=== PATIENT | male | born 1965 | race Caucasian/White ===

== ENCOUNTER 2020-10-06 18:13 | Emergency (ER) | payer SELFPAY ==
[2020-10-06 18:36] VITALS: BP 185/100; PULSE 117; RESP 15; TEMP 36.3; O2SAT 98; BMI 23.7
[2020-10-06] MEDS: cloNIDine 0.1 mg Tablet PO (19:34)
[2020-10-06 19:35] VITALS: BP 157/101; PULSE 103; RESP 17; O2SAT 97
[2020-10-06] MEDS: gelatin 12-7 mm Sponge 1 EACH TOPICAL (19:35)
[2020-10-06] MEDS: silver nitrate applicator 1 EACH TOPICAL (19:35)
[2020-10-06 20:25] VITALS: BP 157/93; PULSE 88; RESP 18; O2SAT 96
--- NOTE | 2020-10-06 21:31 | ED_ITS ---
HPI - Epistaxis General: Chief complaint: Epistaxis Stated complaint: NOSE BLEED - ALL DAY Time Seen by Provider: 10/06/20 18:48 History of Present Illness: HPI Narrative: 55-year-old male with a right-sided nosebleed since this morning. He states that it stopped and started several times throughout the day. He is not anticoagulated on blood thinners. He does not take aspirin. He is not had a nosebleed in 20 years he says. He does not take any medications. On presentation, his blood pressure is high. MD complaint: epistaxis Location: right nostril Onset (ago): hour(s) Duration: intermittent Associated symptoms: Deny fever(s), headache(s), sinus pain or vomiting Treatment prior to arrival: nose pinching and other (Afrin) Review of Systems Const: Denies: fever(s) ENMT: Denies: sinus pain GI: Denies: vomiting Neuro: Denies: headache(s) PFS ED PFSH: Social History (Updated 09/17/20 @ 12:35 by Bertha Yo LPN) Smoking and tobacco status: current every day smoker Physical Exam Const: COMMON NORMALS: no acute distress, patient oriented x3 and alert GENERAL APPEARANCE: cooperative and comfortable HENMT: COMMON NORMALS: normocephalic and Normal external nose present HEAD & SCALP: normal to inspection and normocephalic FACE & SINUS: normal facial exam NOSE: Normal external nose present and Epistaxis present on the right (Mucosal ulceration floor of right nare.) anterior source and dried blood present Chest: COMMONS NORMALS: normal inspection of the chest Resp: COMMON NORMALS: normal respiratory effort, No use of accessory muscles and clear to auscultation bilaterally AUSCULTATION: clear to auscultation bilaterally Cardio: COMMON NORMALS: regular rate and regular rhythm RATE: regular rate RHYTHM: regular rhythm GI: COMMON NORMALS: Normal to inspection, nondistended, normoactive bowel sounds present Neuro: COMMON NORMALS: patient oriented x3 SENSORIUM/ORIENTATION: Yes alert Procedures Epistaxis Control Time Out Performed: No Nostril: right Direct Inspection: yes and anterior source identified Cautery Used: silver nitrate Device Inserted: vaseline gauze (Gelfoam) Patient Tolerated Procedure: well and no complications Course Vital Signs: Vital signs: Vital Signs Temperature 97.3 F L 10/06/20 18:36 Pulse Rate 88 10/06/20 20:25 Respiratory Rate 18 10/06/20 20:25 Blood Pressure 157/93 10/06/20 20:25 Pulse Oximetry 96 10/06/20 20:25 MDM - Epistaxis MDM Narrative: Medical decision making narrative: Bleeding stopped, will allow discharge. Patient was given 0.1 mg of clonidine with reduction in his blood pressure. He was told to monitor at home. Discharge Plan Discharge Patient Disposition: Home Clinical Impression: Epistaxis Condition: Stable Prescriptions: No Action No Known Home Medications RF: 0 Discharge Orders: Discharge ED (Routine); Ordered 10/06/20 Ordered By: Daquan Rock Discharge Diet: Usual diet Discharge Activity: Increase activity as tolerated Patient Instructions: Epistaxis (ED) Activity Restrictions/Additional Instructions: Return for inability to control bleeding, swelling, pain, any other concerning symptoms. Take your blood pressure twice daily, and report those numbers to your doctor in case your high blood pressure needs to be treated. 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
== END 2020-10-06 20:25 | disposition home or self-care (01) ==
PROVIDERS: Emergency Provider Emergency Medicine
DX: R04.0 Epistaxis (principal); F17.210 Nicotine dependence, cigarettes, uncomplicated
CPT/HCPCS: 30901; 99283

== ENCOUNTER 2024-08-07 19:34 | Inpatient (IN) | payer SELFPAY ==
[2024-08-07] VITALS (7 sets, daily range): BP systolic 168–212; BP diastolic 90–114; PULSE 83–103; RESP 18–25; TEMP 36.9–37.2; O2SAT 95–98
--- NOTE | 2024-08-07 19:34 | ECG_ITS ---
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1965 Requested By: Daquan Mckinney Order Number: [id number] Reading MD: KOLBY WILLETT Measurements Intervals Icard Rate: 100 P: 55 MS: 215 QRS: 25 QRSD: 109 T: 102 QT: 332 QTc: 430 Interpretive Statements SINUS TACHYCARDIA WITH FIRST DEGREE AV BLOCK LEFT ATRIAL ENLARGEMENT [-0.15mV P-WAVE IN V1/V2] POSSIBLE ANTERIOR MYOCARDIAL INFARCTION , OF INDETERMINATE AGE [30 ms Q WAVE IN V3/V4, OR R < 0.2 mV IN V4] MODERATE T-WAVE ABNORMALITY, CONSIDER LATERAL ISCHEMIA [-0.1+ mV T-WAVE IN I/aVL/V5/V6] No previous ECG available for comparison Electronically Signed On 08-08-2024 20:59:02 CDT by KOLBY WILLETT [email or web address] [id number]
--- NOTE | 2024-08-07 19:49 | XRR_ITS ---
PROCEDURE INFORMATION: Exam: XR Chest Exam date and time: 08/07/2024 8:02 PM Age: 58 years old Clinical indication: Chest pressure; C/O left sided chest pain and SOB for the past 3 weeks. PT states that it has been intermittent. Describes the pain as sharp and will radiate down the left arm. PT also reports fatigue, productive cough. PT denies cardiac HX but reports he is a smoker of 1-1.5 pks daily. TECHNIQUE: Imaging protocol: Radiologic exam of the chest. Views: 1 view. COMPARISON: No relevant prior studies available. FINDINGS: Lungs: Hyperinflated lungs. No consolidation. Left lower lobe calcified granuloma small. Pleural spaces: No pleural effusion. No pneumothorax. Heart/Mediastinum: Cardiomegaly. Bones/joints: No acute findings. XR/XR chest 1V portable [id number] IMPRESSION: 1. Morphology of the chest compatible with emphysema/COPD. No consolidation. 2. Cardiomegaly.
[2024-08-07 20:05] LABS: Basophils # 0.1 10^3/uL (0.0-0.1); Basophils % 0.7 %; Eosinophils # 0.5 10^3/uL (0.0-0.8); Eosinophils % 4.6 %; Hematocrit 44.9 % (37-53); Lymphocytes # 4.3 10^3/uL (0.8-4.8); Lymphocytes % 43.4 %; Mean Corpuscular HGB Conc 32.7 g/dL (30-55); Mean Corpuscular Hemoglobin 30.4 pg (27-33); Mean Corpuscular Volume 92.8 fl (82-101); Mean Platelet Volume 9.2 fL (7.4-10.4); Monocytes # 0.7 10^3/uL (0.2-0.9); Monocytes % 6.9 %; Neutrophils # 4.43 10^3/uL (1.8-7.7); Neutrophils % 44.2 %; Nucleated Red Blood Cells % 0 %; Platelet Count 290 10^3/cmm (157-399); Red Blood Count 4.84 10^6/uL (3.85-5.65); Red Cell Distribution Width 13.1 % (12.1-15.1); White Blood Count 10.01 10^3/uL (3.29-11.43)
--- NOTE | 2024-08-07 20:12 | ED_ITS ---
HPI - Chest Pain 2 General: Chief Complaint: Chest Pain Stated Complaint: SOB\Chest Pains Time Seen by Provider: 08/07/24 19:48 History of Present Illness: Patient is a generally well-appearing 58-year-old male seen for chest pain, shortness of breath, lightheadedness, which have been ongoing for the last several weeks intermittently. At the time my exam he has no symptoms. He states that with exertion they get worse. He describes the pain as sharp, substernal, with radiation to the left arm. He also has had increased dyspnea on exertion. For a long time he has had dependent edema of the left lower leg and it seems to be getting worse over the last few weeks as well. He has smoked since he was 13 years old but has never had to use an inhaler for steroids and currently takes no medications. He has never been evaluated by a ms sql developer and does not have a primary care doctor. Related Data Home Medications ?Medication ?Instructions ?Recorded ?Confirmed No Known Home Medications 09/17/20 Allergies Allergy/AdvReac Type Severity Reaction Status Date / Time No Known Allergies Allergy Verified 08/07/24 19:44 [facility] ED 2 [facility]: Social History (Updated 09/17/20 @ 12:35 by Bertha Yo LPN) Smoking and tobacco/nicotine status: current every day tobacco/nicotine user Physical Exam 2 Const: COMMON NORMALS: no acute distress, patient oriented x3 and alert HENMT: COMMON NORMALS: normocephalic and atraumatic HEAD & SCALP: n ormocephalic and atraumatic Eye: COMMON NORMALS: Equal, round and reactive pupils present, EOMs intact bilaterally and no scleral icterus PUPIL: Yes Equal, round and reactive pupils present Resp: COMMON NORMALS: normal respiratory effort and No retractions Cardio: COMMON NORMALS: regular rate, regular rhythm and No murmurs present (Cardio) RATE: regular rate RHYTHM: regular rhythm GI: COMMON NORMALS: Normal to inspection, nondistended, normoactive bowel sounds present, Soft to palpation and non-tender PALPATION: Yes Soft to palpation Extremity: NARRATIVE EXTREMITY EXAM: 1+ pitting edema of the bilateral lower extremities to the knees. Left leg is somewhat larger diameter than right. No redness or pain. Neuro: COMMON NORMALS: patient oriented x3 SENSORIUM/ORIENTATION: Yes alert Skin: COMMON NORMALS: no rashes or lesions noted GENERAL SKIN EXAM: no rashes or lesions noted Course 2 Vital Signs: Vital signs: Vital Signs Temperature 98.9 F 08/07/24 19:35 Pulse Rate 96 08/07/24 20:54 Respiratory Rate 21 H 08/07/24 20:54 Blood Pressure 188/114 08/07/24 20:57 Pulse Oximetry 97 08/07/24 20:54 Oxygen Delivery Me thod Room Air 08/07/24 20:54 MDM - Chest Pain Medical Decision Making In summary, patient is a generally well-appearing 58-year-old male seen for intermittent chest pain which is exertional and accompanied by lightheadedness and diaphoresis and nausea. He was has shortness of breath due to smoking which she has done since he was 13. He has never required steroids or bronchodilators for his lungs. EKG shows left bundle branch block of uncertain chronicity. Troponin is elevated greater than 400 and BNP is somewhat elevated at 1623. He will be started on a heparin bolus and drip. He already took a baby aspirin and will be given 162 mg chewable aspirin in addition. He will be made n.p.o. at midnight. I spoke with the hospitalist will admit the patient and also with the metal furniture panel coverer who plans to cath him in the morning. He has remained pain-free throughout ED course. Patient is agreeable to the plan and will be taken to the floor in stable condition. Lab Data 08/07/24 19:53 08/07/24 19:53 Radiology Impressions Chest X-Ray 08/07/24 19:49 IMPRESSION: 1. Morphology of the chest compatible with emphysema/COPD. No consolidation. 2. Cardiomegaly. Laboratory Results WBC 10.01 10^3/uL (3.29-11.43) 08/07/24 19:53 RBC 4.84 10^6/uL (3.85-5.65) 08/07/24 19:53 Hgb 14.70 g/dL (11.27-16.99) 08/07/24 19:53 Hct 44.9 % (37-53) 08/07/24 19:53 MCV 92.8 fl (82-101) 08/07/24 19:53 MCH 30.4 pg (27-33) 08/07/24 19:53 MCHC 32.7 g/dL (30-55) 08/07/24 19:53 RDW 13.1 % (12.1-15.1) 08/07/24 19:53 Plt Count 290 10^3/cmm (157-399) 08/07/24 19:53 MPV 9.2 fL (7.4-10.4) 08/07/24 19:53 Neut % (Auto) 44.2 % 08/07/24 19:53 Lymph % (Auto) 43.4 % 08/07/24 19:53 [place] % (Auto) 6.9 % 08/07/24 19:53 Eos % (Auto) 4.6 % 08/07/24 19:53 Baso % (Auto) 0.7 % 08/07/24 19:53 Neut # (Auto) 4.43 10^3/uL (1.8-7.7) 08/07/24 19:53 Lymph # (Auto) 4.3 10^3/uL (0.8-4.8) 08/07/24 19:53 [place] # (Auto) 0.7 10^3/uL (0.2-0.9) 08/07/24 19:53 Eos # (Auto) 0.5 10^3/uL (0.0-0.8) 08/07/24 19:53 Baso # (Auto) 0.1 10^3/uL (0.0-0.1) 08/07/24 19:53 Nucleated RBC % (auto) 0 % 08/07/24 19:53 Nucleated RBCs # 0.0 /100WBC 08/07/24 19:53 Sodium 142 mmol/L (136-145) 08/07/24 19:53 Potassium 3.8 mmol/L (3.5-5.1) 08/07/24 19:53 Chloride 105 mmol/L (98-107) 08/07/24 19:53 Carbon Dioxide 26 mmol/L (22-29) 08/07/24 19:53 Anion Gap 14.8 (5-19) 08/07/24 19:53 BUN 11 mg/dL (6-20) 08/07/24 19:53 Creatinine 0.8 mg/dL (0.7-1.2) 08/07/24 19:53 GFR Calculation 99.6 mL/min (90-130) 08/07/24 19:53 Glucose 113 mg/dL (65-115) 08/07/24 19:53 Calculated Osmolality 294 mOsm/kg (285-295) 08/07/24 19:53 Calcium 9.3 mg/dL (8.5-10.5) 08/07/24 19:53 Total Bilirubin 0.3 mg/dL (0.15-1.2) 08/07/24 19:53 AST 12 U/L (0-40) 08/07/24 19:53 ALT 13 U/L (0-41) 08/07/24 19:53 Alkaline Phosphatase 100 U/L (40-130) 08/07/24 19:53 Troponin T Baseline 423 ng/L (0-15) H* 08/07/24 19:53 NT-Pro-B Natriuret Pep 1623 pg/mL (0-125) H 08/07/24 19:53 Total Protein 6.9 g/dL (6.6-8.7) 08/07/24 19:53 Albumin 4.7 g/dL (3.5-5.2) 08/07/24 19:53 Globulin 2.2 g/dL (1.3-4.6) 08/07/24 19:53 Lipase 30 U/L (13-60) 08/07/24 19:53 All radiology interpretation(s) finalized by discharge EKG Data EKG 1: Interpretation: Time?1938?sinus tachycardia with first-degree block, rate of 100, left bundle branch block pattern with negative Sgarbossa criteria, QTc = 389. No prior studies on file for comparison. 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
[2024-08-07 20:26] LABS: Alanine Aminotransferase 13 U/L (0-41); Albumin Level 4.7 g/dL (3.5-5.2); Alkaline Phosphatase 100 U/L (40-130); Anion Gap 14.8 (5-19); Aspartate Amino Transferase 12 U/L (0-40); Blood Urea Nitrogen 11 mg/dL (6-20); Calcium 9.3 mg/dL (8.5-10.5); Carbon Dioxide 26 mmol/L (22-29); Chloride 105 mmol/L (98-107); Globulin 2.2 g/dL (1.3-4.6); Glomerular Filtration Rate 99.6 mL/min (90-130); Glucose 113 mg/dL (65-115); Lipase 30 U/L (13-60); Osmolality Calculated 294 mOsm/kg (285-295); Potassium 3.8 mmol/L (3.5-5.1); Sodium 142 mmol/L (136-145); Total Bilirubin 0.3 mg/dL (0.15-1.2); Total Protein 6.9 g/dL (6.6-8.7)
[2024-08-07 20:39] LABS: NT Pro B Type Natriuretic Pept 1623 pg/mL (0-125)
[2024-08-07 20:44] LABS: Troponin(5th) Baseline 423 ng/L (0-15)
--- NOTE | 2024-08-07 20:58 | P.HP_ITS ---
Providers/Chief Complaint 2 Chief Complaint: SOB\Chest Pains History of Present Illness Kyle Malik is a 58 year old male with a past medical history significant for tobacco use disorder who presents to the emergency department with left-sided substernal chest pressure with radiation down left arm. Patient reports onset about 2 to 3 weeks ago. Describes symptoms as intermittent. Reports associated shortness of breath and lightheadedness with episodes. Reports exertion worsens symptoms. Rest improves. Patient denies known history of heart disease. He does not follow with a physician typically. He notes extensive family history of heart disease in his father and grandparents. He is an active tobacco smoker cigarettes since age 13. Denies prior ischemic workup. In the emergency department, patient was found to have elevated blood pressure. EKG revealed left bundle branch block. Labs revealed elevated troponin T to 423 ng/L and elevated NT proBNP to 1623 pg/mL. Plain chest x-ray showed cardiomegaly and evidence suggestive of chronic emphysema/COPD. Review of Systems 2 Narrative: Endorses chronic left worse than right lower extremity edema, otherwise a complete review of systems was obtained and is negative except as stated in HPI. Medications/Allergies Home Medications ?Medication ?Instructions ?Recorded ?Confirmed ?Last Taken ?Type No Known Home Medications 09/17/20 Unk nown History Allergies Allergy/AdvReac Type Severity Reaction Status Date / Time No Known Allergies Allergy Verified 08/07/24 19:44 PFSH Acute 2 PFSH: Medical History Tobacco use disorder Surgical History History of foot surgery Family History Father Heart disease Grandmother Heart disease Daughter Arrhythmia Social History Smoking and tobacco/nicotine status: current every day tobacco/nicotine user Alcohol intake: never Substance/Drug Use: never Vitals/I&O/Wt Last Vital Signs Temp 98.9 F 08/07/24 19:35 Pulse 96 08/07/24 20:54 Resp 21 H 08/07/24 20:54 BP 188/114 08/07/24 20:57 Pulse Ox 97 08/07/24 20:54 O2 Del Method Room Air 08/07/24 20:54 Weight last 48 hrs Weight 90.718 kg Physical Exam 2 Narrative: General: Patient is awake and alert. Conversational. Head: Normocephalic. Atraumatic. EOM intact. Neck: No JVD. Cardiovascular: RRR. No gallops. No murmurs. 2+ pitting edema in bilateral lower extremities extending from ankle to lower calf, left worse than right. Lungs: Slightly prolonged expiratory phase. No crackles. No wheezing. No rales. No rhonchi. On room air. Skin: No jaundice. No rashes. Abdomen: Normal bowel sounds, abdomen soft and nontender. Genito Urinary: Genital exam not performed since complaints not related. Rectal: Rectal exam not performed since no symptoms indicated blood loss. Extremities: No cyanosis or clubbing. Musculoskeletal: No erythematous joints. Neurological: Moves all 4 extremities. No myoclonus. Data 08/07/24 19:53 08/07/24 19:53 A&P Assessment and plan (1) Non-ST elevation OK (NSTEMI): (2) Tobacco use disorder: (3) Elevated blood pressure reading without diagnosis of hypertension: (4) Peripheral edema: (5) Elevated brain natriuretic peptide (BNP) level: Plan Non-ST elevation myocardial infarction - Status post loaded with aspirin, continue 81 mg daily - Load with Plavix 300 mg, continue with a 75 daily - Start high intensity statin - Start beta-zachariah - Start heparin - Check A1c and lipid profile - Telemetry monitoring - Echo - Cardiology consulted - NPO after midnight for likely cardiac cath Elevated NT-proBNP Peripheral edema - TTE ordered Elevated blood pressure - Starting beta-zachariah - Monitor hemodynamics, adjust antihypertensives as needed Tobacco use disorder - Smoking cessation counseling for 3 minutes - Declined nicotine replacement treatment DVT ppx: Heparin Code: Full PDMP PDMP Reviewed: Not Reviewed Attestations 2 Medical Necessity Statement*: Patient presents with typical cardiac chest pain, found to have NSTEMI with expected hospitalization not to cross two midnights for acute coronary syndrome treatment and ischemic work up. Coding Level of Care Code Acute Code for [facility] Fwd Diagnoses Non-ST elevation OK (NSTEMI) I21.4 Tobacco use disorder F17.200 Elevated blood pressure reading without diagnosis of hypertension R03.0 Peripheral edema R60.0 Elevated brain natriuretic peptide (BNP) level R79.89
[2024-08-07] MEDS: heparin 5,000 unit/mL INJ 1 mL IVP (21:12)
[2024-08-07 21:13] LABS: Partial Thromboplastin Time 29.3 SECONDS (23.9-36.7)
[2024-08-07] MEDS: aspirin 81 mg Chew Tablet 162 MG PO (21:16)
[2024-08-07] MEDS: heparin drip 25,000 UNIT/500 ML PREMIX 25.4 UNIT IV (21:36)
[2024-08-07 22:18] LABS: Troponin 5 2HR 459.1 ng/L (0-15); Troponin 5 2HR Delta 36.1 ABS# (0-10)
[2024-08-07] MEDS: clopidogrel 300 mg Tablet PO (23:09)
[2024-08-07] MEDS: metoprolol tartrate 25 mg Tablet PO (23:09)
[2024-08-07] MEDS: amlodipine 5 mg Tablet PO (23:22)
[2024-08-08] VITALS (8 sets, daily range): BP systolic 138–182; BP diastolic 81–103; PULSE 75–92; RESP 16–27; TEMP 36.5–37.1; O2SAT 91–96
[2024-08-08 02:05] LABS: Bilirubin Urine Negative (Negative); Blood Urine Negative (Negative); Glucose Urine UA Negative (Normal); Ketones Urine Negative (Negative); Leukocyte Esterase Urine Negative (Negative); Nitrate Urine Negative (Negative); Protein Urine Negative (Negative); Specific Gravity, Urine 1.005 (1.005-1.030); Urine Appearance Clear (CLEAR); Urine Color Yellow (Yellow)
[2024-08-08 02:10] LABS: Add Urine Microscopic? YES; Bacteria Urine None Seen /hpf; Hyaline Casts Urine 0-4 /lpf; RBC Urine 0-2 /hpf (0-2); Squamous Epithelial Cell Urine 0-5 /hpf (0-5); WBC Urine 0-5 /hpf (0-5)
[2024-08-08 02:15] LABS: Troponin 5 6HR 378.2 ng/L (0-15); Troponin 5 6HR Delta -44.8 ng/L (0-12)
[2024-08-08 03:43] LABS: Basophils # 0.1 10^3/uL (0.0-0.1); Basophils % 0.8 %; Eosinophils # 0.6 10^3/uL (0.0-0.8); Eosinophils % 5.3 %; Hematocrit 46.4 % (37-53); Lymphocytes # 4.1 10^3/uL (0.8-4.8); Lymphocytes % 39.1 %; Mean Corpuscular HGB Conc 32.1 g/dL (30-55); Mean Corpuscular Hemoglobin 30.3 pg (27-33); Mean Corpuscular Volume 94.3 fl (82-101); Mean Platelet Volume 9.3 fL (7.4-10.4); Monocytes # 0.7 10^3/uL (0.2-0.9); Monocytes % 6.5 %; Neutrophils # 5.04 10^3/uL (1.8-7.7); Nucleated Red Blood Cells % 0 %; Platelet Count 272 10^3/cmm (157-399); Red Blood Count 4.92 10^6/uL (3.85-5.65); Red Cell Distribution Width 13.2 % (12.1-15.1); White Blood Count 10.49 10^3/uL (3.29-11.43)
[2024-08-08 03:50] LABS: Partial Thromboplastin Time 58.9 SECONDS (23.9-36.7)
[2024-08-08 04:04] LABS: Anion Gap 16.9 (5-19); Blood Urea Nitrogen 8 mg/dL (6-20); Calcium 9.1 mg/dL (8.5-10.5); Carbon Dioxide 22 mmol/L (22-29); Chloride 107 mmol/L (98-107); Glomerular Filtration Rate 99.6 mL/min (90-130); Glucose 102 mg/dL (65-115); Osmolality Calculated 293 mOsm/kg (285-295); Potassium 3.9 mmol/L (3.5-5.1); Sodium 142 mmol/L (136-145)
[2024-08-08 04:05] LABS: Estmated Average Glucose 97
[2024-08-08 04:24] LABS: Chol HDL Ratio 5.61 mg/dL (1.0-5.00); Cholesterol 185 mg/dL (0-200); HDL Cholesterol 33 mg/dL (60-100); LDL Cholesterol Calculated 124 mg/dL (50-129); LDL HDL Ratio 3.76 RATIO (0.00-3.22); Triglycerides 140 mg/dL (0-150)
[2024-08-08] MEDS: metoprolol tartrate 25 mg Tablet PO ×2 (08:42→21:41)
[2024-08-08] MEDS: clopidogrel 75 mg Tablet PO (08:42)
[2024-08-08] MEDS: aspirin 81 mg EC Tablet PO (08:42)
--- NOTE | 2024-08-08 09:31 | PC.CHAP ---
Pastoral Care Encounter/Spiritual Assessment Type of Contact [] Declined county library director visit [] Patient/Family/Request visit [] Outpatient visit [] Follow-up visit [] Physician referral [] Code/Alert [x] Routine visit [] Staff referral [] Actively dying [] Patient sleeping [x] Family support [] [] Out of room [] Palliative care [] [] Receiving care in room [] Pre-surgical visit [] Trauma [] Long length of stay [] ICU visit [] Other: Relational/Emotional Strength [] Patient feels connected with others/family/visitors/staff [] Distress [] Loneliness/isolation [] Abandonment Spirituality of Patient [x] Person of Darlene [] Attends Confucianism of their Darlene [x] Believes in Prayer [] Reads Bible or Christianity materials [] There are Spiritual issues to be addressed Cloth Piecer Interventions [x] Prayer [x] Active listening [] Non-anxious presence [] Spiritual/emotional support [] Crisis/trauma care [] Spiritual counseling [] Bereavement support [] Provided bereavement packet [x] Provided Bible/devotional materials [] Provided toy/stuffed animal, coloring book to patient or family member [] Provided Communion [] Anointing/[place] [] Salvation [x] Completed spiritual assessment [] Other: Impact on Illness or Injury [] Angry [] Fearful [] Anxious [] Often cries [] Exhaustion [] Unable to work [] Unable to attend baptism [] Unable to walk/stand [] Unable to read [] Unable to drive [] Unable to eat/drink [] Unable to sleep [] Unable to be with family [] Patient intubated [] Other: Summary Time spent with patient 10 min
[2024-08-08] MEDS: potassium chloride ER 20 mEq Tablet PO ×2 (10:48→17:02)
[2024-08-08] MEDS: FUROsemide 10 mg/mL SDV 10mL 60 MG IVP ×2 (10:48→21:42)
--- NOTE | 2024-08-08 12:52 | P.PN_ITS ---
Subjective 2 Subjective: - Patient was seen this morning -He is standing up, ambulating around hi s room - He tells me he cannot lie flat, his be d is propped up to 60 degrees, - Does report shortness of breath with e xertion # Denies any chest pain, no palpitations - I had a detailed discussion with him a bout his NSTEMI, concerns for CHF, systolic CHF, need for diuresis, to optimize him for coronary angiography - He voices understanding, all questions answered, Vitals/I&O/Wt Last Vital Signs Temp 98.7 F 08/08/24 12:00 Pulse 84 08/08/24 12:00 Resp 24 H 08/08/24 12:00 BP 148/81 08/08/24 12:00 Pulse Ox 92 08/08/24 12:00 O2 Del Method Room Air 08/08/24 12:00 Weight last 48 hrs Weight 90.492 kg Weight 90.492 kg Weight 90.718 kg Data 08/08/24 03:24 08/08/24 03:24 A&P Assessment and plan (1) Non-ST elevation NM (NSTEMI): (2) Tobacco use disorder: (3) Elevated blood pressure reading without diagnosis of hypertension: (4) Peripheral edema: (5) Elevated brain natriuretic peptide (BNP) level: Plan Non-ST elevation myocardial infarction - Status post loaded with aspirin, continue 81 mg daily - Load with Plavix 300 mg, continue with a 75 daily - Continue high intensity statin - Continue beta-zachariah - Continue heparin drip - Telemetry monitoring - Echo pending - Cardiology consulted, Lasix 60 mg IV twice daily - NPO after midnight for likely cardiac cath Elevated NT-proBNP, concerns for systolic CHF exacerbation Peripheral edema - TTE ordered - Lasix 60 IV twice daily Elevated blood pressure - Starting beta-zachariah - Monitor hemodynamics, adjust antihypertensives as needed Tobacco use disorder - Smoking cessation counseling DVT ppx: Heparin Code: Full code Spoke to patient, spoke to cardiology, plan on IV diuresis today, monitor for recurrent chest pain, possible cardiac catheterization tomorrow for NSTEMI PDMP PDMP Reviewed: Not Reviewed Attestations 2 Medical Necessity Statement*: Patient requires hospitalization, inpatient, greater than 2 midnights, for NSTEMI, concerns for systolic CHF exacerbation requiring IV diuresis, Diagnoses Non-ST elevation NM (NSTEMI) I21.4 Tobacco use disorder F17.200 Elevated blood pressure reading without diagnosis of hypertension R03.0 Peripheral edema R60.0 Elevated brain natriuretic peptide (BNP) level R79.89
--- NOTE | 2024-08-08 13:54 | P.CONIM_ITS ---
<Statement entered by Judi Acevedo MD - 08/08/24 20:52> Patient was evaluated and cared for in conjunction with an advanced practice practitioner. I personally examined the patient and reviewed the chart and all pertinent data including imaging, telemetry, and laboratory results. I discussed the patient in detail with the advanced practice practitioner. Please see their note for complete H&P testing result and agreed upon plan of care for the patient. 58-year-old male past medical history significant for hypertension hyperlipidemia continuous tobacco abuse presented with chest pain off-and-on going on for the last few weeks 2 days back patient has more consistent chest pain now whenever he tried to move and walk he feels short of breath with chest pressure. In the ER he was appeared to be stable but with left bundle branch block and troponin of 400 since patient history was more consistent with myocardial infarction of indeterminate age and because of the fact he was chest pain-free stable vital sloan and noted to be volume overloaded with acute decompensated heart failure we decided to recommend admission to the patient, he was ruled in for acute coronary syndrome, troponin is declining. He has underlying left bundle branch block which is possibly old obese we do not have any prior EKG to compare. Patient admits to orthopnea PND and lower extremity edema GENERAL: Patient is alert, he cannot lay down and sit in the bed denies chest pain admits to PND orthopnea HEART: Regular S1 and S2. No murmur, rub or gallop. LUNGS: Inspiratory crackles bilaterally. CENTRAL NERVOUS SYSTEM: Grossly nonfocal. EXTREMITIES: Lower extremities with out edema bilaterally. Assessment and plan Non-ST elevation OH Left bundle branch block not acute acute decompensated heart failure new onset Moderate to severely depressed left ventricular ejection fraction with wall motion abnormality Continue aspirin statin beta-zachariah Continue IV heparin Will diurese patient with IV Lasix 40 mg twice daily and replenish potassium Once left ventricular end-diastolic pressure improved since patient is chest pain-free will proceed with left heart cath in the morning. Will continue to monitor him on the telemetry. I have detailed discussion with the patient and his family including to daughter by bedside all risk-benefit and alternative for the procedure has been explained in detail patient and his daughters agreed to it and would like to proceed with it. Providers/Reason For Consult 2 Consulting Physician/Specialty*: Judi Acevedo MD Reason for Consult*: NSTEMI, chest pain Requesting Physician: Dr. Ashton Attending Physician: Oz Ashton MD History of Present Illness History of Present Illness Kyle Malik is a 58 year old male with a past medical history for tobacco abuse, hypertension, presented to the ER department yesterday evening with substernal chest pressure radiating down the left arm on exertion relieved with rest. He states that this has been going on for 2 to 3 weeks. He reports associated shortness of breath with exertion and orthopnea. He states he does not go to disease in his father and grandparents. When he came into the ER he was found to have a left bundle branch block. Troponins were elevated up to 423, elevated proBNP at 1623. X-ray showed cardiomegaly. He is chest pain-free at the time of my assessment. He states since he came in that it has resolved. Review of Systems 2 Narrative: Consitutional: denies fever, chills, body aches, or changes in appetite, denies abnormal weight loss Eyes: Denies changes in vision Card: Denies chest pain, palpitations, irregular heart rhythm, edema, syncope, reports shortness of breath on exertion, reports orthopnea, reports swelling bilateral lower extremities Resp: Reports shortness of breath on exertion, denies hemoptysis, denies cough GI: reports abdominal distention Musc: Denies extremity pain, denies limited range of motion or recent injury Skin: Denies rash, lesions, or wounds, denies changes to skin color Neuro: Denies nubmness in extremities, h/a, s/s of stroke Armin: Denies easy bruiding/bleeding Medications/Allergies Home Medications ?Medication ?Instructions ?Recorded ?Confirmed ?Last Taken ?Type No Known Home Medications 09/17/2007/13 Unknown History Allergies Allergy/AdvReac Type Severity Reaction Status Date / Time No Known Allergies Allergy Verified 08/07/24 19:44 Current Medications Generic Name Dose Route Start Last Admin Trade Name Cora PRN Reason Stop Dose Admin Aspirin 81 mg 08/08/24 09:00 08/08/24 08:42 Aspirin 81 Mg Ec Tablet PO 81 mg DAILY TOMER Administration Clopidogrel Bisulfate 75 mg 08/08/24 09:00 08/08/24 08:42 Clopidogrel 75 Mg Tablet PO 75 mg DAILY TOMER Administration Furosemide 60 mg 08/08/24 10:30 08/08/24 10:48 Furosemide 10 Mg/Ml Sdv 10ml IVP 60 mg Q12H TOMER Administration Heparin Sodium/Sodium Chloride 25,000 unit in 500 mls @ 0 mls/hr 08/07/24 21:00 08/07/24 21:36 Heparin Drip IV 14 unit/kg/hr CONT TOMER 25.4 mls/hr Administration Protocol Per Protocol Metoprolol Tartrate 25 mg 08/07/24 22:47 08/08/24 08:42 Metoprolol Tartrate 25 Mg Tablet PO 25 mg BID@0900,2100 TOMER Administration PFSH Acute 2 PFSH: Medical History Tobacco use disorder Surgical History History of foot surgery Family History Father Heart disease Grandmother Heart disease Daughter Arrhythmia Social History Smoking and tobacco/nicotine status: current every day tobacco/nicotine user Alcohol intake: never Substance/Drug Use: never Vitals/I&O/Wt Last Vital Signs Temp 98.7 F 08/08/24 12:00 Pulse 84 08/08/24 12:00 Resp 24 H 08/08/24 12:00 BP 148/81 08/08/24 12:00 Pulse Ox 92 08/08/24 12:00 O2 Del Method Room Air 08/08/24 12:00 Weight last 48 hrs Weight 199 lb 8 oz Weight 199 lb 8 oz Weight 200 lb Physical Exam 2 Narrative: General: No apparent distress, healthy appearing, well nourished HENMT: normoceophalic Muskuloskeletal: Full ROM Respiratory: Normal respiratory effort, fine crackles bilateral lower loves, no use of accessory muscles Cardio: No JVD, regular rate, regular rhythm, S1 S2 normal, no murmurs, peripheral pulses 2+ radial palpated bilaterally GI: abdomen distended Extremities: Full ROM, normal, normal capillary refill, 2+ pidding edema bilateral lower extremities Neuro: Alert and oriented x4, no focal motor deficits Psych: Affect normal, denies suicidal ideation, mental status grossly normal Skin: No rashes or lesions noted, no wounds Data 08/08/24 03:24 08/08/24 03:24 A&P Assessment and plan (1) Non-ST elevation OH (NSTEMI): (2) Tobacco use disorder: (3) Elevated brain natriuretic peptide (BNP) level: (4) Peripheral edema: Plan Patient has evidence of NSTEMI as well as possible CHF exacerbation. At this time patient is showing signs and symptoms of fluid overload and is not adequately diuresed to go have a left heart cath done. At this time he is not having any chest pain. Will continue to monitor him. Will initiate Lasix 60 mg twice daily with potassium 20 twice daily. Will reevaluate this afternoon to see when we can go for left heart cath. Echo has been done but not read. Further recommendations after this as well. Continue heparin drip. He was loaded with plavix 300 mg. Continue Plavix and aspirin. Thank you, Dr. Ashton, for allowing us to care for this very pleasant 58 year old gentleman. PDMP PDMP Reviewed: Not Reviewed Consult Attestations 2 Medical Necessity Statement: Deferred to primary. Coding Level of Care Code Acute Code for [facility] Fwd Diagnoses Non-ST elevation OH (NSTEMI) I21.4 Tobacco use disorder F17.200 Elevated brain natriuretic peptide (BNP) level R79.89 Peripheral edema R60.0
[2024-08-08 16:38] LABS: Partial Thromboplastin Time 53.5 SECONDS (23.9-36.7)
[2024-08-08] MEDS: heparin drip 25,000 UNIT/500 ML PREMIX 29 UNIT IV (17:03)
--- NOTE | 2024-08-08 21:29 | USCV_ITS ---
Kyle Malik Age: 58 Gender: M : 1965 Exam Date: 08/08/2024 09:16 Ordering Phys: Hank Robb MD Technologist: Exam Location: [facility] [place] Indication: BP: 163 / 98 HR: 82 Rhythm: Sinus Technical Quality: Adequate MEASUREMENTS (Male / Female) Normal Values 2D ECHO LV Diastolic Diameter PLAX 5.4 cm 4.2 - 5.9 / 3.9 - 5.3 cm IVS Diastolic Thickness 1.6 cm 0.6 - 1.0 / 0.6 - 0.9 cm IVS Systolic Thickness 2.0 cm LVPW Diastolic Thickness 1.2 cm 0.6 - 1.0 / 0.6 - 0.9 cm LVPW Systolic Thickness 2.0 cm LVOT Diameter 2.0 cm LV Ejection Fraction 2D Teich 70.7 % LV Ejection Fraction MOD 4C 25.9 % LV Ejection Fraction MOD 2C 30.0 % LV Ejection Fraction 2C AL 31.9 % LA Diameter 4.1 cm RA Systolic Volume 4C AL 51.2 ml RA Systolic Volume 4C MOD 49.9 ml Aorta at Sinotubular Diameter 3.1 cm IVC Diameter 2.1 cm M-MODE LA Ao Ratio MM 1.3 AV Cusp Separation MM 2.1 cm DOPPLER AV Peak Velocity 109.0 cm/s LVOT Peak Velocity 83.0 cm/s AV Area Cont Eq vti 2.0 cm squared AV Area Cont Eq pk 2.5 cm squared MV Peak Velocity 116.0 cm/s MV Area PHT 4.6 cm squared Mitral E to A Ratio 1.9 TR Peak Velocity 208.0 cm/s TR Peak Gradient 17.3 mmHg TV Peak E Velocity 93.0 cm/s PV Peak Velocity 82.0 cm/s FINDINGS Left Ventricle Technically limited quality echocardiogram because of poor ultrasonic windows. LV systolic function is severely reduced with EF of 30-35%. Severe global hypokinesis. Right Ventricle Normal in size and function Right Atrium Normal in size Left Atrium Dilated Mitral Valve Grossly normal. Mild mitral regurgitation Aortic Valve Aortic valve is thickened. No significant stenosis. Tricuspid Valve Insufficient TR jet to calculate RVSP Pulmonic Valve Not well visualized Pericardium Normal Aorta Normal in size IVC Appears to be dilated CONCLUSIONS Technically limited quality echocardiogram because of poor ultrasonic windows. LV systolic function is severely reduced with 30-35% Left atrial dilation Mild mitral regurgitation IVC appears to be dilated No comparison studies are available. Yoel Grimm MD (Electronically Signed) Final Date: 09 August 2024 19:43 S
[2024-08-08] MEDS: atorvastatin 40 mg Tablet 80 MG PO (21:41)
[2024-08-08 23:52] LABS: Partial Thromboplastin Time 68.1 SECONDS (23.9-36.7)
[2024-08-09] VITALS (10 sets, daily range): BP systolic 122–178; BP diastolic 72–104; PULSE 71–99; RESP 16–24; TEMP 36.5–37; O2SAT 93–97
[2024-08-09 06:23] LABS: Basophils # 0.1 10^3/uL (0.0-0.1); Basophils % 0.7 %; Eosinophils # 0.5 10^3/uL (0.0-0.8); Eosinophils % 4.7 %; Hematocrit 47.1 % (37-53); Lymphocytes # 3.7 10^3/uL (0.8-4.8); Lymphocytes % 38.6 %; Mean Corpuscular HGB Conc 32.7 g/dL (30-55); Mean Corpuscular Hemoglobin 30.4 pg (27-33); Mean Corpuscular Volume 93.1 fl (82-101); Monocytes # 0.6 10^3/uL (0.2-0.9); Monocytes % 5.9 %; Neutrophils # 4.83 10^3/uL (1.8-7.7); Neutrophils % 49.8 %; Nucleated Red Blood Cells % 0 %; Platelet Count 310 10^3/cmm (157-399); Red Blood Count 5.06 10^6/uL (3.85-5.65); Red Cell Distribution Width 13.2 % (12.1-15.1)
[2024-08-09 06:40] LABS: Alanine Aminotransferase 13 U/L (0-41); Albumin Level 4.3 g/dL (3.5-5.2); Alkaline Phosphatase 100 U/L (40-130); Aspartate Amino Transferase 11 U/L (0-40); Blood Urea Nitrogen 9 mg/dL (6-20); Calcium 9.5 mg/dL (8.5-10.5); Carbon Dioxide 25 mmol/L (22-29); Chloride 102 mmol/L (98-107); Creatinine Clr Calc Pharmacy 117.2617; Glomerular Filtration Rate 99.6 mL/min (90-130); Glucose 97 mg/dL (65-115); Magnesium 2.4 mg/dL (1.7-2.3); Osmolality Calculated 287 mOsm/kg (285-295); Phosphorus 2.9 mg/dL (2.5-4.5); Sodium 139 mmol/L (136-145); Total Bilirubin 0.8 mg/dL (0.15-1.2); Total Protein 7.3 g/dL (6.6-8.7)
[2024-08-09 07:00] LABS: Partial Thromboplastin Time 73.4 SECONDS (23.9-36.7)
[2024-08-09] MEDS: clopidogrel 75 mg Tablet PO (07:28)
[2024-08-09] MEDS: aspirin 81 mg EC Tablet PO (07:28)
[2024-08-09] MEDS: potassium chloride ER 20 mEq Tablet PO ×2 (07:29→17:20)
[2024-08-09] MEDS: metoprolol tartrate 25 mg Tablet PO ×2 (07:29→20:17)
[2024-08-09 07:40] LABS: NT Pro B Type Natriuretic Pept 1463 pg/mL (0-125)
--- NOTE | 2024-08-09 09:40 | P.HPUD_ITS ---
Surgery/Procedure H&P Update DATE OF PROCEDURE: August 09, 2024 DATE H&P PERFORMED: 08/08/24 H&P UPDATE INFORMATION: I have reviewed H&P completed within last 30 days, I have examined patient prior to procedure and No changes to prior documentation PREOP DIAGNOSIS: [id number] IN PRIMARY INDICATION FOR PROCEDURE: [id number] PATIENT REASSESSED PRIOR TO SEDATION, WITH NO CHANGE NOTED: Yes PHYSICAL EXAM: alert, oriented x 3, clear to auscultation bilaterally and regular rate & rhythm AIRWAY EVAL/ANESTHESIA PLAN: ASA II, Risks, benefits & alternatives of sedation and/or procedure discussed and Patient agrees to continue as planned ADDITIONAL INFORMATION: All risk-benefit and already for the procedure has been explained to the patient. Patient understand 2% risk of stroke major bleed, 5% risk of contrast-induced nephropathy urgent emergent vascular bypass surgery pseudoa neurysm hematoma. Patient agreed to it and would like to proceed with that.
--- NOTE | 2024-08-09 10:04 | PC.NURSE ---
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
[2024-08-09] MEDS: FUROsemide 10 mg/mL SDV 10mL 60 MG IVP (11:02)
--- NOTE | 2024-08-09 11:03 | PM.PROC ---
Procedure Note: Date of procedure: 08/09/24 Pre-procedure diagnosis: Non-ST elevation CO Post-procedure diagnosis: same Procedure: Left heart catheterization/PCI Left main: Short normal LAD: Proximal LAD has high-grade stenosis LCx, mid circumflex including proximal obtuse marginal has high-grade 99% stenosis which is the culprit vessel. RCA has luminal irregularity without significant stenosis Successful PCI to circumflex with 2 overlapping drug-eluting stent including mid circumflex and appears marginal with excellent angiographic result Successful PCI to proximal LAD with single drug-eluting stent, both stents were postdilated with noncompliant balloon. Excellent angiographic result KOBY-3 flow was achieved. Plan: Wristband as per protocol Continue aspirin statin, reload with 300 mg of Plavix, dual antiplatelet therapy for at least 2 years Full note to follow. Coding Level of Care Code Acute Code for [facility]
--- NOTE | 2024-08-09 11:14 | PC.NURSE ---
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 Patient is s/p [facility] with right radial access and tr band in place. Removed 1ml of air upon arrival to floor. Pulse palbable, with warm, pink extremity. Provided instructions regarding site care with restrictions. Patient verbalized complete understanding. Will continue to monitor.
--- NOTE | 2024-08-09 13:53 | PC.NURSE ---
Initiated air removal from TR band at 1050 removing 1-2ml of air every 15-20min until all air removed at this time. Band is off. No s/s of bleeding or hematoma formation observed. Covered site with 2x2 and coban. Instructed patient on site care and restrictions. Patient verbalized complete understanding. Patient refusing to leave telemetry in place. Patient is very restless and wants to go home. Informed patient on need to stay on telemetry and to watch over night. Patient verbalized understanding however still wants to go home . Will continue to monitor.
--- NOTE | 2024-08-09 16:12 | P.PN_ITS ---
Subjective 2 Subjective: Patient was seen this morning, family numbers at bedside no chest pain overnight, shortness of breath has improved, no fevers, no chills, Vitals/I&O/Wt Last Vital Signs Temp 97.9 F 08/09/24 10:57 Pulse 75 08/09/24 12:27 Resp 22 H 08/09/24 12:27 BP 178/104 08/09/24 12:27 Pulse Ox 94 08/09/24 12:27 O2 Del Method Room Air 08/09/24 10:57 08/09/24 08/09/24 08/09/24 06:59 14:59 22:59 Intake Total 202.033 / 702.033 297.967 / 297.967 Output Total 1800 / 1800 Balance -1597.967 / -1097.967 297.967 / 297.967 Weight last 48 hrs Weight 90.492 kg Weight 90.492 kg Weight 90.718 kg Physical Exam 2 Const: COMMON NORMALS: no acute distress and patient oriented x3 Resp: COMMON NORMALS: normal respiratory effort, No retractions, No use of accessory muscles and clear to auscultation bilaterally AUSCULTATION: clear to auscultation bilaterally Cardio: COMMON NORMALS: regular rate, regular rhythm, S1 normal heart sound present and S2 normal heart sound present RATE: regular rate RHYTHM: r egular rhythm HEART SOUNDS: S1 normal heart sound present and S2 normal heart sound present GI: COMMON NORMALS: Normal to inspection, nondistended, normoactive bowel sounds present and non-tender Extremity: COMMON NORMALS: no pedal edema Neuro: COMMON NORMALS: patient oriented x3 Psych: COMMON NORMALS: mental status grossly normal Data 08/09/24 06:17 08/09/24 06:17 A&P Assessment and plan (1) Non-ST elevation [place] (NSTEMI): (2) Tobacco use disorder: (3) Elevated blood pressure reading without diagnosis of hypertension: (4) Peripheral edema: (5) Elevated brain natriuretic peptide (BNP) level: Plan Non-ST elevation myocardial infarction - Status post loaded with aspirin, continue 81 mg daily - Load with Plavix 300 mg, continue with a 75 daily - Continue high intensity statin - Continue beta-zachariah - Continue heparin drip - Telemetry monitoring - Echo pending - Cardiology consulted, Lasix 60 mg IV twice daily - NPO for cardiac cath Elevated NT-proBNP, concerns for systolic CHF exacerbation Peripheral edema - TTE ordered - Lasix 60 IV twice daily Elevated blood pressure - Starting beta-zachariah - Monitor hemodynamics, adjust antihypertensives as needed Tobacco use disorder - Smoking cessation counseling DVT ppx: Heparin Code: Full code Spoke to patient, spoke to cardiology, planning cardiac cath today PDMP PDMP Reviewed: Not Reviewed Attestations 2 Medical Necessity Statement*: Patient requires hospitalization for NSTEMI, requiring coronary angiography Diagnoses Non-ST elevation PA (NSTEMI) I21.4 Tobacco use disorder F17.200 Elevated blood pressure reading without diagnosis of hypertension R03.0 Peripheral edema R60.0 Elevated brain natriuretic peptide (BNP) level R79.89
[2024-08-09] MEDS: sacubitril/valsartan 24-26 mg Tablet 1 EACH PO (17:20)
[2024-08-09] MEDS: FUROsemide 10 mg/mL SDV 4mL 40 MG IVP (20:17)
[2024-08-09] MEDS: atorvastatin 40 mg Tablet 80 MG PO (20:17)
--- NOTE | 2024-08-09 22:40 | PC.NURSE ---
Redressed TR band site with gauze and tegaderm. Site is intact no signs of hematoma but did have slight oozing from insertion site. Educated patient to notifiy nurse if he notices swelling or continued oozing. Patient inquiring about stent and BP. Using stent visual aid at nurses station provided education on stent and answered patient questions.
[2024-08-10 04:00] VITALS: BP 137/73; PULSE 72; RESP 18; TEMP 36.9; O2SAT 94
[2024-08-10 05:52] LABS: Basophils # 0.1 10^3/uL (0.0-0.1); Basophils % 0.5 %; Eosinophils # 0.4 10^3/uL (0.0-0.8); Eosinophils % 3.2 %; Lymphocytes # 3.4 10^3/uL (0.8-4.8); Lymphocytes % 30.9 %; Mean Corpuscular HGB Conc 32.3 g/dL (30-55); Mean Corpuscular Volume 92.9 fl (82-101); Mean Platelet Volume 9.7 fL (7.4-10.4); Monocytes # 0.8 10^3/uL (0.2-0.9); Monocytes % 7.1 %; Neutrophils % 57.8 %; Nucleated Red Blood Cells % 0 %; Platelet Count 293 10^3/cmm (157-399); Red Blood Count 5.06 10^6/uL (3.85-5.65); Red Cell Distribution Width 13.2 % (12.1-15.1); White Blood Count 11.09 10^3/uL (3.29-11.43)
[2024-08-10 06:26] LABS: Alanine Aminotransferase 14 U/L (0-41); Albumin Level 4.1 g/dL (3.5-5.2); Alkaline Phosphatase 94 U/L (40-130); Anion Gap 16.7 (5-19); Aspartate Amino Transferase 27 U/L (0-40); Blood Urea Nitrogen 16 mg/dL (6-20); Calcium 9.1 mg/dL (8.5-10.5); Carbon Dioxide 25 mmol/L (22-29); Chloride 102 mmol/L (98-107); Creatinine Clr Calc Pharmacy 92.9937; Globulin 2.8 g/dL (1.3-4.6); Glucose 99 mg/dL (65-115); Magnesium 2.2 mg/dL (1.7-2.3); NT Pro B Type Natriuretic Pept 1417 pg/mL (0-125); Osmolality Calculated 291 mOsm/kg (285-295); Phosphorus 3.1 mg/dL (2.5-4.5); Potassium 3.7 mmol/L (3.5-5.1); Sodium 140 mmol/L (136-145); Total Bilirubin 0.6 mg/dL (0.15-1.2); Total Protein 6.9 g/dL (6.6-8.7)
[2024-08-10] MEDS: FUROsemide 10 mg/mL SDV 4mL 40 MG IVP (07:35)
[2024-08-10] MEDS: potassium chloride ER 20 mEq Tablet PO (07:35)
[2024-08-10] MEDS: aspirin 81 mg EC Tablet PO (07:35)
[2024-08-10] MEDS: clopidogrel 75 mg Tablet PO (07:35)
[2024-08-10] MEDS: metoprolol succinate ER (24 HR) 25 mg Tablet PO (07:36)
[2024-08-10] MEDS: sacubitril/valsartan 24-26 mg Tablet 1 EACH PO (07:36)
[2024-08-10 07:48] VITALS: BP 118/69; PULSE 73; RESP 19; TEMP 36.4; O2SAT 99
[2024-08-10 08:00] VITALS: PULSE 77; RESP 16; O2SAT 96
--- NOTE | 2024-08-10 08:07 | PM.DCS ---
Discharge Providers Date of Admission: 08/08/24 12:52 Date of Discharge: August 10, 2024 Attending Provider at Admission: Hank Robb MD Attending Provider at Discharge: Oz Ashton MD Diagnoses at Discharge Discharge Diagnosis (1) Non-ST elevation DC (NSTEMI): Status: Resolved (2) Tobacco use disorder: Status: Acute (3) Elevated blood pressure reading without diagnosis of hypertension: Status: Resolved (4) Peripheral edema: Status: Resolved (5) Elevated brain natriuretic peptide (BNP) level: Status: Resolved Reason for Visit Reason for Visit: SOB\Chest Pains Hospital Course Hospital Course This is a 58-year-old male with past medical history of smoking, who presents [facility] for chest pain Patient presented to [facility] for NSTEMI, cardiology consulted, underwent coronary angiography, status post successful PCI to circumflex with 2 overlapping drug-eluting stents including the circumflex and obtuse marginal, successful PCI to the proximal LAD with single drug-eluting stent, tolerated procedure well, discharged on aspirin, Plavix, statin, beta-zachariah, Entresto with close follow-up with cardiology as an outpatient During his hospitalization there was concerns for CHF, EF 30 to 35%, received IV diuresis, overall clinically improved discharged on p.o. Lasix Physical Exam Const: COMMON NORMALS: no acute distress and patient oriented x3 Resp: COMMON NORMALS: normal respiratory effort, No retractions, No use of accessory muscles and clear to auscultation bilaterally AUSCULTATION: clear to auscultation bilaterally Cardio: COMMON NORMALS: regular rate, regular rhythm, S1 normal heart sound present and S2 normal heart sound present RATE: regular rate RHYTHM: regular rhythm HEART SOUNDS: S1 normal heart sound present and S2 normal heart sound present GI: COMMON NORMALS: Normal to inspection, nondistended, normoactive bowel sounds present and non-tender Extremity: COMMON NORMALS: no pedal edema Neuro: COMMON NORMALS: patient oriented x3 Psych: COMMON NORMALS: mental status grossly normal Discharge Data Studies Completed and Pending Completed Studies During Hospitalization Category Date Time Status XR chest 1V portable [id number] Stat Exams 08/07/24 19:49 Completed CV. echo complete* [id number] Stat Ultrasound 08/08/24 21:29 Completed Pending at discharge Category Date Time Status ZINC PLATER request for service Routine Exams 08/09/24 08:47 Taken Complete Blood Count w/Auto AM LABS Lab 08/11/24 04:00 Ordered Comprehensive Metabolic Panel AM LABS Lab 08/11/24 04:00 Ordered Magnesium AM LABS Lab 08/11/24 04:00 Ordered NT Pro B Type Natriuretic Pept QAM Lab 08/11/24 06:00 Ordered Phosphorus AM LABS Lab 08/11/24 04:00 Ordered Radiology Impressions Chest X-Ray 08/07/24 19:49 IMPRESSION: 1. Morphology of the chest compatible with emphysema/COPD. No consolidation. 2. Cardiomegaly. Laboratory Results WBC 11.09 10^3/uL (3.29-11.43) 08/10/24 03:25 RBC 5.06 10^6/uL (3.85-5.65) 08/10/24 03:25 Hgb 15.20 g/dL (11.27-16.99) 08/10/24 03:25 Hct 47.0 % (37-53) 08/10/24 03:25 MCV 92.9 fl (82-101) 08/10/24 03:25 MCH 30.0 pg (27-33) 08/10/24 03:25 MCHC 32.3 g/dL (30-55) 08/10/24 03:25 RDW 13.2 % (12.1-15.1) 08/10/24 03:25 Plt Count 293 10^3/cmm (157-399) 08/10/24 03:25 MPV 9.7 fL (7.4-10.4) 08/10/24 03:25 Neut % (Auto) 57.8 % 08/10/24 03:25 Lymph % (Auto) 30.9 % 08/10/24 03:25 [place] % (Auto) 7.1 % 08/10/24 03:25 Eos % (Auto) 3.2 % 08/10/24 03:25 Baso % (Auto) 0.5 % 08/10/24 03:25 Neut # (Auto) 6.40 10^3/uL (1.8-7.7) 08/10/24 03:25 Lymph # (Auto) 3.4 10^3/uL (0.8-4.8) 08/10/24 03:25 [place] # (Auto) 0.8 10^3/uL (0.2-0.9) 08/10/24 03:25 Eos # (Auto) 0.4 10^3/uL (0.0-0.8) 08/10/24 03:25 Baso # (Auto) 0.1 10^3/uL (0.0-0.1) 08/10/24 03:25 Nucleated RBC % (auto) 0 % 08/10/24 03:25 Nucleated RBCs # 0.0 /100WBC 08/10/24 03:25 PT 12.80 SECONDS (12.1-14.9) 08/07/24 19:53 INR 0.90 (0.8-1.2) 08/07/24 19:53 APTT 73.4 SECONDS (23.9-36.7) H 08/09/24 06:17 Sodium 140 mmol/L (136-145) 08/10/24 03:25 Potassium 3.7 mmol/L (3.5-5.1) 08/10/24 03:25 Chloride 102 mmol/L (98-107) 08/10/24 03:25 Carbon Dioxide 25 mmol/L (22-29) 08/10/24 03:25 Anion Gap 16.7 (5-19) 08/10/24 03:25 BUN 16 mg/dL (6-20) 08/10/24 03:25 Creatinine 1.0 mg/dL (0.7-1.2) 08/10/24 03:25 GFR Calculation 77.0 mL/min (90-130) L 08/10/24 03:25 Glucose 99 mg/dL (65-115) 08/10/24 03:25 Estimat Average Glucose 97 08/08/24 03:24 Hemoglobin A1c 5.0 % (4.0-6.0) 08/08/24 03:24 Calculated Osmolality 291 mOsm/kg (285-295) 08/10/24 03:25 Calcium 9.1 mg/dL (8.5-10.5) 08/10/24 03:25 Phosphorus 3.1 mg/dL (2.5-4.5) 08/10/24 03:25 Magnesium 2.2 mg/dL (1.7-2.3) 08/10/24 03:25 Total Bilirubin 0.6 mg/dL (0.15-1.2) 08/10/24 03:25 AST 27 U/L (0-40) 08/10/24 03:25 ALT 14 U/L (0-41) 08/10/24 03:25 Alkaline Phosphatase 94 U/L (40-130) 08/10/24 03:25 Troponin T Baseline 423 ng/L (0-15) H* 08/07/24 19:53 Troponin T 120 Minute 459.1 ng/L (0-15) H 08/07/24 21:47 Delta Troponin T 36.1 ABS# (0-10) H* 08/07/24 21:47 Troponin T Hi Sens 6Hr 378.2 ng/L (0-15) H 08/08/24 01:48 Troponin T Hi Sens 6Hr Delta -44.8 ng/L (0-12) L 08/08/24 01:48 NT-Pro-B Natriuret Pep 1417 pg/mL (0-125) H 08/10/24 03:25 Total Protein 6.9 g/dL (6.6-8.7) 08/10/24 03:25 Albumin 4.1 g/dL (3.5-5.2) 08/10/24 03:25 Globulin 2.8 g/dL (1.3-4.6) 08/10/24 03:25 Triglycerides 140 mg/dL (0-150) 08/08/24 03:24 Cholesterol 185 mg/dL (0-200) 08/08/24 03:24 LDL Cholesterol, Calc 124 mg/dL (50-129) 08/08/24 03:24 HDL Cholesterol 33 mg/dL (60-100) L 08/08/24 03:24 LDL/HDL Ratio 3.76 RATIO (0.00-3.22) H 08/08/24 03:24 Cholesterol/HDL Ratio 5.61 mg/dL (1.0-5.00) H 08/08/24 03:24 Lipase 30 U/L (13-60) 08/07/24 19:53 Urine Color Yellow (Yellow) 08/08/24 01:20 Urine Appearance Clear (CLEAR) 08/08/24 01:20 Urine pH 7.0 (5-7) 08/08/24 01:20 Ur Specific [place] 1.005 (1.005-1.030) 08/08/24 01:20 Urine Protein Negative (Negative) 08/08/24 01:20 Urine Glucose (UA) Negative (Normal) 08/08/24 01:20 Urine Ketones Negative (Negative) 08/08/24 01:20 Urine Blood Negative (Negative) 08/08/24 01:20 Urine Nitrate Negative (Negative) 08/08/24 01:20 Urine Bilirubin Negative (Negative) 08/08/24 01:20 Urine Urobilinogen 1.0 mg/dL (Negative) 08/08/24 01:20 Ur Leukocyte Esterase Negative (Negative) 08/08/24 01:20 Urine RBC 0-2 /hpf (0-2) 08/08/24 01:20 Urine WBC 0-5 /hpf (0-5) 08/08/24 01:20 Ur Squamous Epith Cells 0-5 /hpf (0-5) 08/08/24 01:20 Amorphous Sediment Not Reportable 08/08/24 01:20 Urine Bacteria None seen /hpf (NONE) 08/08/24 01:20 Hyaline Casts 0-4 /lpf H 08/08/24 01:20 Vitals Last Vital Signs Temp 97.6 F 08/10/24 07:48 Pulse 77 08/10/24 08:00 Resp 16 08/10/24 08:00 BP 118/69 08/10/24 07:48 Pulse Ox 96 08/10/24 08:00 O2 Del Method Room Air 08/10/24 08:00 Discharge Plan Discharge Patient Disposition: Home Condition: Stable Prescriptions: New atorvastatin 40 mg Tablet 80 mg PO BEDTIME 30 Days Qty: 60 0RF clopidogrel 75 mg Tablet 75 mg PO DAILY 30 Days Qty: 30 0RF aspirin 81 mg Tablet,Delayed Release (Dr/Ec) 81 mg PO DAILY 30 Days Qty: 30 0RF potassium chloride [Klor-Con M20] 20 mEq Tablet,Er Particles/Crystals 20 meq PO DAILY 30 Days Qty: 30 0RF nitroglycerin 0.4 mg Tablet, Sublingual 0.4 mg sublingual Q5M PRN (Reason: Chest Pain) 30 Days Qty: 30 0RF metoprolol succinate 25 mg Tablet Extended Release 24 Hr 25 mg PO DAILY 30 Days Qty: 30 0RF Entresto 24-26 mg Tablet 1 tab PO BID 30 Days Qty: 60 0RF furosemide [Lasix] 40 mg tablet 40 mg PO DAILY 30 Days Qty: 30 0RF Discharge Orders: Discharge Order (Routine); Ordered 08/10/24 Ordered By: Oz Ashton Referrals: Vanita Lester NP [Nurse Practitioner, Cardiology] - 08/17/24 3:00 pm Lance Muñoz MD [Referring, Family Practice] Referral Note: Please complete the new patient registration form and return to the clinic. Once paperwork is reviewed, the clinic will schedule you an appointment with Dr. Muñoz. Discharge Diet: Cardiac Discharge Activity: Resume usual activity Patient Instructions: Metoprolol (By mouth) (Lopressor, Toprol XL), Nitroglycerin (By mouth), Furosemide (By mouth) (Lasix), Potassium Chloride (By mouth), Atorvastatin (By mouth) (Lipitor, Atorvaliq), Clopidogrel (By mouth) (Plavix), Sacubitril/Valsartan (By mouth) (Entresto, Entresto Sprinkle), Chest Pain (DC), Coronary Angioplasty (DC), Cardiac Rehabilitation (DC), CHF Stoplight, Chest Pain Stoplight, Opioid Safety, Post Angiogram Home Care Instructions Discharge Attestations Time Spent in Discharge Care*: greater than 30 min Time Spent in Smoking Cessation: 3 to 10 minutes Smoking cessation counseling, discussed morbidity mortality,, discussed CAD, Quality Metrics Clinical Quality Measures [ Acute Myocardial Infaction { Clinical Trial Participant: No; Contraindication to aspirin: None; Aspirin prescribed; Contraindication to statin: None; Statin prescribed; Contraindication to PCI: None; PCI performed;}. No reported AMI, CVA or VTE this stay] Coding Level of Care Code 63235 Total time (in minutes) for Discharge: 45 Diagnoses Non-ST elevation DC (NSTEMI) I21.4 Tobacco use disorder F17.200 Elevated blood pressure reading without diagnosis of hypertension R03.0 Peripheral edema R60.0 Elevated brain natriuretic peptide (BNP) level R79.89
--- NOTE | 2024-08-10 09:23 | PC.NURSE ---
Patient is waiting to establish care with Dr Muñoz [facility], clinic has sent new patient paperwork for patient to complete. Once paperwork is completed clinic will schedule patient.
--- NOTE | 2024-08-10 09:56 | PC.NURSE ---
Patient discharged to home. Instruction provided potential need for Lifevest placement, follow up appointments, all new medications, site care with restrictions. Patient verbalized complete understanding. IV and telemetry removed. Right wrist remains c,d,i without s/s of bleeding or hematoma formation observed. Patient received medications via med-to-beds prior to discharge. Patient denies pain or other needs. No distress observed. Patient insisted on leaving ambulatory with friend at bedside to provided private transportation.
[2024-08-10 10:02] VITALS: BP 118/69; PULSE 73; RESP 20; O2SAT 96
--- NOTE | 2024-08-10 11:51 | P.PN_ITS ---
<Statement entered by Yoel Grimm M.D - 08/11/24 07:25> Patient was cared for in conjunction with an advanced practice practitioner.? I reviewed the chart and all pertinent data including imaging, telemetry, and laboratory results.? I discussed the patient in detail with the advanced practice practitioner.? Please see? their note for complete progress note, testing results and agreed upon plan of care for the patient. Subjective 2 Subjective: Patient was doing well this morning status post stenting to the proximal LAD and mid circumflex As well as OM. His cath site looks good. Denies chest pain or shortness of breath. Creatinine normal. Vitals/I&O/Wt Last Vital Signs Temp 97.6 F 08/10/24 07:48 Pulse 73 08/10/24 10:02 Resp 20 H 08/10/24 10:02 BP 118/69 08/10/24 10:02 Pulse Ox 96 08/10/24 10:02 O2 Del Method Room Air 08/10/24 08:00 08/09/24 08/10/24 08/10/24 22:59 06:59 14:59 Intake Total 300 / 597.967 0 / 597.967 Output Total 600 / 600 Balance -300 / -2.033 0 / -2.033 Weight last 48 hrs Weight 195 lb 9.6 oz Physical Exam 2 Narrative: General: No apparent distress, healthy appearing, well nourished HENMT: normoceophalic Muskuloskeletal: Full ROM Respiratory: Normal respiratory effort, Clear throughout bilateral lower lobes, no use of accessory muscles Cardio: No JVD, regular rate, regular rhythm, S1 S2 normal, no murmurs, peripheral pulses 2+ radial palpated bilaterally GI: abdomen distended Extremities: Full ROM, normal, normal capillary refill, 2+ pitting edema bilateral lower extremities Neuro: Alert and oriented x4, no focal motor deficits Psych: Affect normal, denies suicidal ideation, mental status grossly normal Skin: Right radial cath site clean dry intact no signs or symptoms of hematoma Data 08/10/24 03:25 08/10/24 03:25 A&P Assessment and plan (1) Non-ST elevation GA (NSTEMI): (2) Tobacco use disorder: (3) Elevated brain natriuretic peptide (BNP) level: (4) Peripheral edema: Plan Patient is doing well. He is not requiring oxygen. He is ready to go home. From cardiology standpoint may be discharged on aspirin Plavix statin and Entresto as well as Lasix with potassium and metoprolol. Will see the patient in 1 week in the clinic.LifeVest was offered to patient due to EF is 30 to 35%. Patient states he would like to wear this. He is self-pay and I did discuss this with [employer] company they stated will take a little bit to get this information pushed through. Patient does not want to wait for this and would like to be discharged home. He understands the risks of life-threatening arrhythmias. We have ordered and will try to get it on an outpatient basis PDMP PDMP Reviewed: Not Reviewed Attestations 2 Medical Necessity Statement*: Defer to primary. Coding Level of Care Code Acute Code for [facility] Fwd Diagnoses Non-ST elevation GA (NSTEMI) I21.4 Tobacco use disorder F17.200 Elevated brain natriuretic peptide (BNP) level R79.89 Peripheral edema R60.0
== END 2024-08-10 10:04 | disposition home or self-care (01) | DRG 321 ==
LOC: ER 21:04 → CSU 21:43
PROVIDERS: Internal Medicine Cardiovascular Disease; Admitting Provider Internal Medicine; Emergency Provider Student in an Organized Health Care Education/Training Program; Visit Provider Family Medicine
PROC: 027236Z Dilation of Coronary Artery, Three Arteries with Three Drug-eluting Intraluminal Devices, Percutaneous Approach (ICD-10-PCS; principal; 2024-08-09 08:30)
PROC: 027236Z Dilation of Coronary Artery, Three Arteries with Three Drug-eluting Intraluminal Devices, Percutaneous Approach (ICD-10-PCS; 2024-08-09 08:30)
DX: I21.4 Non-ST elevation (NSTEMI) myocardial infarction (principal); I50.23 Acute on chronic systolic (congestive) heart failure; R79.89 Other specified abnormal findings of blood chemistry; R60.0 Localized edema; R03.0 Elevated blood-pressure reading, without diagnosis of hypertension; F17.210 Nicotine dependence, cigarettes, uncomplicated; I44.7 Left bundle-branch block, unspecified; E78.5 Hyperlipidemia, unspecified; I11.0 Hypertensive heart disease with heart failure; Z71.6 Tobacco abuse counseling
CPT/HCPCS: 36415; 71045; 80048; 80053; 80061; 81001; 83036; 83690; 83735; 83880; 84100; 84484; 85025; 85347; 85610; 85730; 93005; 93306; 93454; 96365; 96366; 96374; 96375; 96376; 99152; 99153; 99291; A9270; C1725; C1769; C1874; C1887; C1894; C9600; C9601; G0378; J1200; J1644; J1938; J1940; J2250; J3010; J3490; J7030; J9999; Q9967

== ENCOUNTER → 2024-08-17 15:38 | Outpatient (BNVA) | payer SELFPAY | PROVIDERS: PCP Family Medicine; Visit Provider Nurse Practitioner Family | DX: I50.20 Unspecified systolic (congestive) heart failure (principal) | CPT/HCPCS: 36415; 80053; 85025 ==

== ENCOUNTER → 2024-09-15 15:47 | Outpatient (BNVA) | payer SELFPAY | PROVIDERS: PCP Family Medicine; Visit Provider Internal Medicine Cardiovascular Disease | DX: I25.10 Atherosclerotic heart disease of native coronary artery without angina pectoris (principal); R52 Pain, unspecified | CPT/HCPCS: 36415; 80048; 82550 ==